=== PATIENT | female | born 1960 | race Native Hawaiian/Other Pacific Islander ===

== ENCOUNTER → 2016-10-17 13:18 | Outpatient (CLI) | payer OTHER | END | disposition home or self-care (01) | LOC: RAD 13:18 | DX: Z12.31 Encounter for screening mammogram for malignant neoplasm of breast (principal) | CPT/HCPCS: G0202-TC ==

== ENCOUNTER 2017-04-29 08:07 | Emergency (ER) | payer OTHER ==
[~2017-04-29] VITALS: Ht 175.3 cm; Wt 77.1 kg
[2017-04-29 08:20] VITALS: BP 141/73; TEMP 98
[2017-04-29] MEDS ORDERED: GABA300C2 PO (08:43)
== END 2017-04-29 08:47 | disposition home or self-care (01) ==
LOC: ED 08:07
DX: N39.0 Urinary tract infection, site not specified (principal)
CPT/HCPCS: 99281

== ENCOUNTER 2018-01-23 13:42 | Outpatient (CLI) | payer OTHER ==
[~2018-01-23 13:42] MED LIST: GABA300C2 PO
== END 2018-01-23 20:35 | disposition home or self-care (01) ==
LOC: MAMMO 13:42
DX: Z12.31 Encounter for screening mammogram for malignant neoplasm of breast (principal)

== ENCOUNTER 2018-06-03 13:56 | Outpatient (CLI) | payer OTHER | END 2018-06-03 20:01 | disposition home or self-care (01) | LOC: RAD 13:56 | DX: R53.83 Other fatigue (principal) ==

== ENCOUNTER 2021-05-10 11:08 | Emergency (ER) | payer OTHER ==
[~2021-05-10] VITALS: Ht 175.3 cm; Wt 72.6 kg
[2021-05-10 11:10] VITALS: TEMP 99
[2021-05-10 12:00] LABS: PLATELET COUNT 255 K/uL (152-353)
[2021-05-10 12:20] LABS: POTASSIUM 3.8 mmol/L (3.6-5.2)
[2021-05-10 14:33] VITALS: BP 148/62
== END 2021-05-10 14:35 | disposition home or self-care (01) ==
LOC: ED 11:08
PROVIDERS: Emergency Medicine Emergency Medical Services
DX: R53.83 Other fatigue (principal); Z20.822 Contact with and (suspected) exposure to COVID-19
CPT/HCPCS: 36415; 80053; 81000; 84443; 85027; 87635; 96360; 96375; 99284; J2405; U0003